=== PATIENT | female | born 2000 | race African-American/Black ===

== ENCOUNTER 2021-10-20 12:08 | Emergency (ER) | payer MEDICAID ==
[~2021-10-20] VITALS: Ht 165.1 cm; Wt 63.0 kg
[2021-10-20 12:29] VITALS: BP 130/73
[2021-10-20] MEDS ORDERED: THERA FLU (12:33)
[2021-10-20] MEDS ORDERED: GUAI120017 PO (12:33)
[2021-10-20] MEDS ORDERED: BIRTH CONTROL (12:33)
[2021-10-20] MEDS ORDERED: IBUP-2030 MT (14:56)
[2021-10-20] MEDS ORDERED: METH-653 MT (14:56)
[2021-10-20] MEDS ORDERED: ALBU6.7H9 INH (14:56)
== END 2021-10-20 16:03 | disposition home or self-care (01) ==
LOC: ER 12:08
DX: U07.1 COVID-19 (principal); Z88.2 Allergy status to sulfonamides; Z88.0 Allergy status to penicillin
CPT/HCPCS: 99283; C9803; U0003; U0005

== ENCOUNTER 2021-10-29 17:46 | Emergency (ER) | payer MEDICAID ==
[~2021-10-29] VITALS: Ht 165.1 cm; Wt 64.0 kg
[~2021-10-29 17:46] MED LIST: ALBU6.7H9 INH; BIRTH CONTROL; GUAI120017 PO; IBUP-2030 MT; METH-653 MT; THERA FLU
[2021-10-29 20:22] VITALS: BP 128/67
== END 2021-10-29 20:25 | disposition home or self-care (01) ==
LOC: ER 17:46
DX: R07.89 Other chest pain (principal); J45.909 Unspecified asthma, uncomplicated; Z88.0 Allergy status to penicillin; Z88.1 Allergy status to other antibiotic agents; Z88.2 Allergy status to sulfonamides
CPT/HCPCS: 71045; 93005; 99283